=== PATIENT | female | born 1965 | race Caucasian/White ===

== ENCOUNTER 2017-05-08 15:05 | Emergency (ER) | payer BC ==
[2017-05-08 15:25] VITALS: BP 170/83
[2017-05-08] MEDS ORDERED: Ketorolac 30 MG/ML SDV IM ONE (15:35)
--- NOTE | 2017-05-08 15:38 | EDM.PDOC ---
ED HPI GENERAL MEDICAL PROBLEM - General Chief Complaint: Back Pain or Injury Stated Complaint: back pain Time Seen by Provider: 05/08/17 15:26 Source of Information: Reports: Patient History Limitations: Reports: No Limitations - History of Present Illness INITIAL COMMENTS - FREE TEXT/NARRATIVE: Approx a week ago the patient started experiencing lower back pain that has slowly progressed. She is to be headed home in 5 days and wanted to have it checked out prior to flying back to [place] where she is originally from.The back pain is described as a dull feeling does not radiate and is located over the lumbar region. Denies any trauma, fall, or other injures. Does state it does feel like spasms at time. Also at times does think the discomfort may be more over the flank area. Denies any fever, frequency, and hesitancy. Does any radiating pain, numbness, tingling or weakness of any of the limbs. Onset: Gradual Onset Date: 05/03/17 Duration: Getting Worse Location: Reports: Back Quality: Reports: Ache, Burning, Dull Severity: Moderate Improves with: Reports: Immobilization, Rest Worsens with: Reports: Movement Associated Symptoms: Reports: No Other Symptoms. Denies: Confusion, Cough, Fever/Chills, Headaches, Malaise, Nausea/Vomiting, Rash, Seizure, Shortness of Breath, Syncope, Weakness Left Flank Pain Score (Numeric/FACES): 6 - Related Data Allergies Allergy/AdvReac Type Severity Reaction Status Date / Time Unable to Assess Allergy Unverified 05/08/17 15:25 Home Meds: Home Meds Levothyroxine 112 mcg PO ACBREAKFAST 05/08/17 [History] Past Medical History - Past Surgical History Endocrine Surgical History: Reports: Thyroidectomy Social & Family History - Tobacco Use Smoking Status *Q: Never Smoker - Recreational Drug Use Recreational Drug Use: No ED ROS GENERAL - Review of Systems Review Of Systems: See Below Constitutional: Reports: No Symptoms HEENT: Reports: No Symptoms Respiratory: Reports: No Symptoms Cardiovascular: Reports: No Symptoms Musculoskeletal: Reports: Back Pain, Muscle Pain. Denies: Foot Pain, Joint Pain , Joint Swelling, Muscle Stiffness Skin: Reports: No Symptoms Neurological: Reports: No Symptoms Psychiatric: Reports: No Symptoms Hematologic/Lymphatic: Reports: No Symptoms ED EXAM,LOWER BACK PAIN/INJURY - Physical Exam Exam: See Below Exam Limited By: No Limitations General Appearance: Alert, WD/WN, No Apparent Distress Neck: Normal Inspection Respiratory/Chest: No Respiratory Distress GI/Abdominal: Normal Bowel Sounds, Soft, Non-Tender, No Organomegaly, No Distention, No Abnormal Bruit, No Mass, Pelvis Stable Back Exam: Normal Inspection, Full Range of Motion Extremities: Normal Inspection, Normal Range of Motion, Normal Capillary Refill Neurological: Normal Mood/Affect, Normal Gait, Oriented x 3 Psychiatric: Normal Affect, Normal Mood Skin Exam: Warm, Dry, Intact, Normal Color, No Rash Course - Vital Signs Last Recorded V/S: Last Vital Signs Temp 36.7 C 05/08/17 15:13 Pulse 75 05/08/17 15:13 Resp 16 05/08/17 15:13 BP 170/83 H 05/08/17 15:13 Pulse Ox 100 05/08/17 15:13 - Orders/Labs/Meds Orders: Active Orders 24 hr Category Date Time Status UA W/MICROSCOPIC [URIN] Stat Lab 05/08/17 15:42 Ordered Orphenadrine [Norflex] Med 05/08/17 15:45 Active 60 mg IM Q12H Medication Orders Orphenadrine Citrate (Norflex) 60 mg IM Q12H FRANNIE Last Admin: 05/08/17 15:52 Dose: 60 mg Meds: Medications Generic Name Dose Route Start Last Admin Trade Name Freq PRN Reason Stop Dose Admin Orphenadrine Citrate 60 mg 05/08/17 15:45 05/08/17 15:52 Norflex IM 60 mg Q12H FRANNIE Administration Discontinued Medications Generic Name Dose Route Start Last Admin Trade Name Freq PRN Reason Stop Dose Admin Ketorolac Tromethamine 30 mg 05/08/17 15:35 05/08/17 15:48 Toradol IM 05/08/17 15:36 30 mg ONETIME ONE Administration Departure - Departure Time of Disposition: 16:15 Disposition: Home, Self-Care 01 Condition: Good Clinical Impression: Low back strain Qualifiers: Encounter type: initial encounter Qualified Code(s): S39.012A - Strain of muscle, fascia and tendon of lower back, initial encounter - Discharge Information Forms: ED Department Discharge - My Orders Last 24 Hours: My Active Orders 05/08/17 15:42 UA W/MICROSCOPIC [URIN] Stat 05/08/17 15:45 Orphenadrine [Norflex] 60 mg IM Q12H - Assessment/Plan Last 24 Hours: My Active Orders 05/08/17 15:42 UA W/MICROSCOPIC [URIN] Stat 05/08/17 15:45 Orphenadrine [Norflex] 60 mg IM Q12H
[2017-05-08] MEDS ORDERED: Take Home: Cyclobenzaprine 10 MG Tab, 4 Tab Pack PO ONE (16:13)
== END 2017-05-08 16:38 | disposition home or self-care (01) ==
LOC: VM.ED 15:05
DX: S39.012A Strain of muscle, fascia and tendon of lower back, initial encounter (principal); E89.0 Postprocedural hypothyroidism; X58.XXXA Exposure to other specified factors, initial encounter
CPT/HCPCS: 81001; 96372; 99283; A9270; J1885; J2360